=== PATIENT | female | born 1970 | race African-American/Black ===

== ENCOUNTER 2017-10-12 07:14 | Emergency (ER) | payer SELFPAY ==
[~2017-10-12] VITALS: Ht 157.5 cm; Wt 85.3 kg
[2017-10-12 07:24] VITALS: BP 158/81
== END 2017-10-12 07:50 | disposition left against medical advice (07) ==
LOC: ER 07:14
DX: M79.672 Pain in left foot (principal); M79.671 Pain in right foot; Z53.21 Procedure and treatment not carried out due to patient leaving prior to being seen by health care provider